=== PATIENT | female | born 1975 | race Caucasian/White ===

== ENCOUNTER 2019-05-03 08:20 | Inpatient (IN) | payer OTHER ==
[~2019-05-03] VITALS: Ht 160 cm; Wt 87.1 kg
== END 2019-05-12 13:11 | disposition home or self-care (01) | DRG 743 ==
LOC: EDBD → SURH 05-09 07:09 → OB/GYN 05-09 08:45 → O/R 05-09 08:45 → OB/GYN 05-09 15:46
PROVIDERS: ADMIT Obstetrics & Gynecology Obstetrics
PROC: 0UT90ZZ Resection of Uterus, Open Approach (ICD-10-PCS; principal; 2019-05-09 11:45)
DX: D25.1 Intramural leiomyoma of uterus (principal); D25.2 Subserosal leiomyoma of uterus; N73.6 Female pelvic peritoneal adhesions (postinfective); N84.1 Polyp of cervix uteri

== ENCOUNTER 2021-02-19 07:15 | Inpatient (IN) | payer OTHER ==
[~2021-02-19] VITALS: Ht 162.6 cm; Wt 92.5 kg
== END 2021-02-26 12:57 | disposition home or self-care (01) | DRG 743 ==
LOC: OB/GYN 02-23 07:00 → O/R 02-23 14:46 → OB/GYN 02-23 21:27 → SEC-K 02-24 01:54 → OB/GYN 02-24 01:55
PROVIDERS: ADMIT Obstetrics & Gynecology Obstetrics; ATTEND Obstetrics & Gynecology Obstetrics
PROC: 0UB00ZZ Excision of Right Ovary, Open Approach (ICD-10-PCS; principal; 2021-02-23 07:00)
DX: N80.1 Endometriosis of ovary (principal); N83.291 Other ovarian cyst, right side; Z20.822 Contact with and (suspected) exposure to COVID-19